=== PATIENT | female | born 1965 | race Caucasian/White ===

== ENCOUNTER 2017-08-19 06:20 | Day surgery (SDC) | payer MEDICAID ==
[~2017-08-19 06:20] MED LIST: A20IH1 IH; ACET-2247 PO; AMOX1TAB16 PO; BISA10S PR; BUSP10TA23 GT; DSS100 GT; ENOX30DI5 SQ; FAMO20 GT; FE RC; FOLI1 GT; GLYC1TAB11 PO; HALO10 PO; HYDR-305 GT; LORA1TAB3 PO; METH10 PO; MIDO5TAB23 GT; MIRALAX PO; MOM30 GT; MULT9LIQ7 GT; POTA20LI36 GT; QUET100T GT; SENN-175 GT; THIA1002I GT
[2017-08-19] MEDS ORDERED: BENZOCAINE 20% 50 MCG/SPRAY 57 GM TP ONE (06:21)
[2017-08-19] MEDS ORDERED: LIDOCAINE HCL 2% 30 ML JELLY TP ONE (06:21)
[2017-08-19] MEDS ORDERED: LIDOCAINE HCL 4% 50 ML SOLUTION TP ONE (06:21)
[2017-08-19] MEDS ORDERED: SODIUM CHLORIDE 0.9% 1,000 ML IV ONE ×2 (07:17→07:30)
[2017-08-19] MEDS ORDERED: MIDAZOLAM HCL 2 MG/2 ML VIAL ONE (07:59)
[2017-08-19] MEDS ORDERED: FentaNYL CITRATE-PF 100 MCG/2 ML VIAL ONE (08:00)
[2017-08-19] MEDS ORDERED: MethylPREDNISolone SOD SUCC 125 MG/2 ML VIAL IVP ONE (09:15)
[2017-08-19] MEDS ORDERED: MethylPREDNISolone SOD SUCC 125 MG/2 ML VIAL ONE (09:20)
[2017-08-19] MEDS ORDERED: OXYGEN THERAPY IH SCH (20:00)
== END 2017-08-19 10:35 | disposition home or self-care (01) ==
LOC: SURGERY 06:20
PROVIDERS: ATTEND Internal Medicine Critical Care Medicine
DX: J38.4 Edema of larynx (principal); B37.0 Candidal stomatitis; F20.9 Schizophrenia, unspecified; F32.9 Major depressive disorder, single episode, unspecified; F41.9 Anxiety disorder, unspecified; K21.9 Gastro-esophageal reflux disease without esophagitis; Z16.30 Resistance to unspecified antimicrobial drugs; Z93.1 Gastrostomy status; Z87.820 Personal history of traumatic brain injury
CPT/HCPCS: 31623; 31624; 87015; 87070; 87101; 87205; 87206; 87220; 88108; 88312; J2250; J2930; J3010; J7030